=== PATIENT | female | born 1980 | race Hispanic/Latino ===

== ENCOUNTER → 2025-05-25 10:33 | Outpatient (REF) | payer BC, SELFPAY | LOC: RAD 10:33 | PROVIDERS: ATTENDING PHYSICIAN Physician Assistant; FAMILY PHYSICIAN Family Medicine | DX: Z91.81 History of falling (principal); M53.3 Sacrococcygeal disorders, not elsewhere classified; M54.50 Low back pain, unspecified | CPT/HCPCS: 72110; 72220 ==